=== PATIENT | female | born 2005 | race Caucasian/White ===

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

== ENCOUNTER 2025-09-12 17:47 | Emergency (ER) | payer OTHER, SELFPAY ==
--- OUTSIDE RECORDS SUMMARY | 2025-09-12 17:50 | XMS_ITS | Clinical Summary ---
Author Organization [facility] Address [address] [place] [address] Care Team Providers Care Plate Slitter And Inspector Name Role Phone Scout Bentley MD Primary [...] XR (GLUCOPHAGE XR) 500 mg 24 hr tabletIndicatio ns:PCOS (polycystic ovarian syndrome) Take 1 tablet (500 mg total) by mouth daily with breakfast 90 tablet 3 5 Active spironolactone (ALDACTONE) 100 mg tabletIndicatio ns:PCOS (polycystic ovarian syndrome) Take 1 tablet (100 mg total) by mouth daily 90 tablet 3 5 Active Active Problems Problem Noted Date Diagnosed Date Morbid obesity with BMI of 40.0-44.9, adult 01/08 Insulin resistance 02/11/2024 Assessment & Plan (02/11/2024 [...] Tobacco: Never Tobacco Cessation:Counseling Given: Not Answered Comments Unknown Sex and Gender Information Value Date Recorded Sex Assigned at Not on file 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 Gender Identity Not on file Sexual Orientation Not on file Last Filed Vital Signs Vital Sign Reading Time Taken Comments Blood Pressure 110/72 01/30/2025 9:49 AM CDT Pulse 88 01/30/2025 9:49 AM CDT Temperature - - Respiratory Rate 14 02/11/2024 12:5 0 PM CDT Oxygen Saturation - - Inhaled Oxygen Concentration - - Weight 113.9 kg (251 lb 3.2 oz) 01/30/2025 9:49 AM CDT Height 167.6 cm (5' 6) 01/30/2025 9:49 AM CDT Body Mass Index 40.54 01/30/2025 9:49 AM CDT Plan of Treatment Health Maintenance Due Date Last Done Comments Depression Screening 2005 Hepatitis C Screening 2005 Varicella Vaccines (1 of 2 - 13+ 2-dose series) 2018 Hepatitis B Screening 2023 Regular Well Visit/Exam 18-64 2023 Meningococcal B Vaccine (2 of 2 - Bexsero SCDM 2-dose series) 12/27/2023 06/26/2023 Covid-19 Vaccine ( - season) 2025 11/07/2021, 08/26/2021, 04/13/2021, Additional history exists Influenza Vaccine (#1) 2025 , 09/09/2019, 09/03/2018, Additional history exists DTaP/Tdap/Td Vaccine (2 - Td or Tdap) 07/31/2026 07/31/2016 HPV Vaccines Completed 02/05/2017, 09/10, 07/31/2016 Meningococcal Vaccine Completed 06/26/2023, 016 Pneumococcal vaccine <65 Aged Out No longer eligible based on patient's age to complete this topic Additional Health Concerns Infection Onset Date Last Indicated MDR gram neg/ESBL 10/08/2021 10/08/2021 [place] [address] [facility] [place] [address] Care Teams Plate Slitter And Inspector Relationship Specialty Start Date End Date Scout Bentley MD [address] [place], [place] [address] PCP - General Pediatrics 06/07/19
--- OUTSIDE RECORDS SUMMARY | 2025-09-12 17:50 | XMS_ITS | Clinical Summary ---
Author Organization [facility] Address [address] [place] [id number] Care Team Providers Care Sole Leveler Name Role Phone Unavailable Primary Care Provider [...] 2 - Standard) 2021 Hepatitis C 2023 DTaP, Tdap and Td Vaccines ( 1 - Tdap) 2024 Hepatitis B Vaccines (1 of 3 - 19+ 3-dose series) 2024 COVID-19 Vaccine (1 - 2024-2 6 season) 2025 Influenza Adult (#1) 2025 Hepatitis A Vaccines Aged Out No long er eligible based on patient's age to complete this topic Meningococcal Vaccine Aged Out No heriberto katja eligible based on patient's age to complete this topic Pneumococcal Vaccine: Pediat rics (0 to 5 Years) and At-Risk Patients (6 to 49 Years) Aged Out No longer eligible b ased on patient's age to complete this topic RSV Immunizations Under 20 Months Aged Out No longer eligible based on patient's age to complete this topic
--- OUTSIDE RECORDS SUMMARY | 2025-09-12 17:50 | XMS_ITS | Clinical Summary ---
Author Organization [facility] Address [address] [place] [address] Care Team Providers Care Manager Games Name Role Phone Scout Bentley MD Primary Care Provider [phone] Source Comments [facility],non-owned Affiliates and Associated Physician Practices is amultiple site organization consisting of ambulatory clinics and hospital sitesin [place], [place], [place] and [place]. This disclosure is being madepursuant to the Care Everywhere program and may not contain all information available regarding this patient. Last updated 18.[facility] Allergies No known active allergies Medications * Be aware that medications may not be up to date on this document. Alwaysverify current medications with the patient. 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 Gender Identity Not on file Sexual Orientation Not on file Last Filed Vital Signs Vital Sign Reading Time Taken Comments Blood Pressure - - Pulse - - Temperature - - Respiratory Rate - - Oxygen Saturation - - Inhaled Oxygen Concentration - - Weight 90.2 kg (198 lb 13.7 oz) 09/04/2022 4:00 PM CDT Height 168.3 cm (5' 6.25) 09/04/2022 4:00 PM CD T Body Mass Index 31.85 09/04/2022 4:00 PM CDT Plan of Treatment Health Maintenance Due Date Last Done Comments HIV SCREENING 2020 HPV VACCINE (1 - 3-dose series) 2020 CHLAMYDIA/GONORRHEA SCREENING 2021 MENINGOCOCCAL (Group B) VACC INE SHARED DECISION-MAKING (1 of 2 - Standard) 2021 HEPATITIS C SCREENING 07/24/2023 DTAP/TDAP/TD VACCINES (1 - Tdap) 2024 HEPATITIS B VACCINE (1 of 3 - 19+ 3-dose series) 2024 DEPRESSION SCREENING 11/09/2024 COVID-19 VACCINE (1 - 2023-2 5 season) 2025 INFLUENZA VACCINE (#1) 2025 09/03/2018 ZOSTER VACCINE (1 of 2) 2055 HIB VACCINE Aged Out No longer eligi ble based on patient's age to complete this topic MENINGOCOCCAL GROUPS A/C/Y/W VACCINE Aged Out No longer eligible b ased on patient's age to complete this topic PNEUMOCOCCAL VACCINE Aged Out No long er eligible based on patient's age to complete this topic Insurance [employer] Care Teams Manager Games Relationship Specialty Start Date End Date Scout Bentley MD [address] [place] [address] PCP - General Pediatrics 10/08/15
--- OUTSIDE RECORDS SUMMARY | 2025-09-12 17:50 | XMS_ITS | Patient Health Record ---
Author Organization [facility] Address [address] [place] [address] Care Team Providers Care Splicing Machine Operator Name Role Phone Marixa Chung Primary Care Provider Allergies No Known Allergies Reason For Referral No Information Medications Medication SIG (Take, Route, Frequency, Duration) Notes Start Date End Date Status Omeprazole 20 MG TAKE 1 CAPSULE BY MO UTH TWICE DAILY Oral; Duration: 90 Days Active guanFACINE HCl ER 2 MG [address] Orally once a day; Duration: 30 days 01/21/2024 Active Spironolactone 100 MG TAKE 1 TABLET BY M OUTH ONCE DAILY IN THE MORNING Oral; Duration: 7 Days Active hydrOXYzine HCl 25 MG 1 tablet as needed Oral Once a day Active fluvoxaMINE Maleate 50 MG 1 tablet at be dtime Orally Once a day; Duration: 30 days Active metFORMIN HCl ER 500 MG TAKE 1 TABLET BY MOUTH ONCE DAILY WITH SUPPER Oral; Duration: 90 Days Active Drospirenone-Ethinyl Estradiol 3-0.03 MG TAKE 1 TABLET BY MOUTH ONCE DAILY Oral; Duration: 84 Days Active Social History Tobacco Use: Social History Observation Description Date Details (start date - stop date) Never Smoker NA - NA Sex Assigned At : Social History Observation Description Sex Assigned At Female Dont use, Tobacco Use/Smoking Question Answer Notes Are you a nonsmoker Tobacco Control (Standard) Question Answer Notes Additional Findings: Tobacco non-user Cu rrent nonsmoker,Nonsmoker for personal reasons Tobacco use: Nonsmoker Problems Problem Type SNOMED Code ICD Code Onset Dates Problem Status W/U Status Risk Notes Problem Generalized anxiety disorder (97039086) GUY (generalized anxiety disorder) (F41.1) Active confirmed Problem Major depressive disorder (568982561) MDD (major depressive disorder) (F32.9) Active confirmed Encounters Encounter Location Date Provider Diagnosis [facility] [address] [place] [address] 09/27/2024 Marixa Chung GUY (generalized anxiety disorder) F41.1 and MDD (major depressive disorder) F32.9 [facility] [place] [address] 12/20/2024 Marixa Chung GUY (generalized anxiety disorder) F41.1 and MDD (major depressive disorder) F32.9 [place] [address] [place] [address] 04/05/2025 Marixa Chung GUY (generalized anxiety disorder) F41.1 and MDD (major depressive disorder) F32.9 [place] [address] [place] [address] 08/01/2025 Marixa Chung GUY (generalized anxiety disorder) F41.1 and MDD (major depressive disorder) F32.[address] [place] [place] [address] 07/07/2025 Marixa Chung GUY (generalized anxiety disorder) F41.1 Assessments Encounter Date Diagnosis (ICD Code) Assessment Notes Treatment Notes Treatment Clinical Notes Section Notes 09/27/2024 GUY (generalized anxiety disorder) (ICD-10 - F41.1) Continue current medications. Continue services as scheduled. Labs completed recently. May self-administer medications or be administered own oral medications per [employer] protocols. Provided informed consent with understanding of side effects, adverse effects, risks and benefits as well as alternative treatments as previously discussed and with the above recommended medications & other aspects of the treatment program. Agrees to return sooner if symptoms worsen or suicidal or homicidal ideations occur. 12/20/2024 GUY (generalized anxiety disorder) (ICD-10 - F41.1) Continue current medications. Continue services as scheduled. Labs completed recently. May self-administer medications or be administered own oral medications per [employer] protocols. Provided informed consent with understanding of side effects, adverse effects, risks and benefits as well as alternative treatments as previously discussed and with the above recommended medications & other aspects of the treatment program. Agrees to return sooner if symptoms worsen or suicidal or homicidal ideations occur. 04/05/2025 GUY (generalized anxiety disorder) (ICD-10 - F41.1) Continue current medications. Continue services as scheduled. Labs completed recently. May self-administer medications or be administered own oral medications per [facility] protocols. Provided informed consent with understanding of side effects, adverse effects, risks and benefits as well as alternative treatments as previously discussed and with the above recommended medications & other aspects of the treatment program. Agrees to return sooner if symptoms worsen or suicidal or homicidal ideations occur. 07/07/2025 GUY (generalized anxiety disorder) (ICD-10 - F41.1) 08/01/2025 GYU (generalized anxiety disorder) (ICD-10 - F41.1) Continue current medications. Labs done recently. Continue services as scheduled. May self-administer medications or be administered own oral medications per [facility] protocols. Provided informed consent with understanding of side effects, adverse effects, risks and benefits as well as alternative treatments as previously discussed and with the above recommended medications & other aspects of the treatment program. Agrees to return sooner if symptoms worsen or suicidal or homicidal ideations occur. 08/01/2025 MDD (major depressive disorder) (ICD-10 - F32.9) 04/05/2025 MDD (major depressive disorder) (ICD-10 - F32.9) 12/20/2024 MDD (major depressive disorder) (ICD-10 - F32.9) 09/27/2024 MDD (major depressive disorder) (ICD-10 - F32.9) Plan Of Treatment No Information Medical (General) History Medical History History ICD Code PCOS GERD Surgical History Surgery Date(Month/Year) Hospitalization History Reason Date(Month/Year)
[2025-09-12 17:54] VITALS: BP 121/75; PULSE 93; RESP 18; TEMP 37.4; O2SAT 99
--- NOTE | 2025-09-12 18:33 | ED.GENADULT ---
HPI - General Adult General Chief complaint: Upper Respiratory Infection Stated complaint: Cough Source: patient Mode of arrival: ambulatory Limitations: no limitations History of Present Illness HPI narrative: Patient presents for evaluation of a cough for the last 4-5 days. She states cough is productive of white sputum. She denies any shortness of breath. No fever, chills, nausea, vomiting, sore throat, otalgia. No recent sick contacts to her knowledge. She does not smoke. She is not taking any medication to assist with her symptoms. Related Data Home Medications ?Medication ?Instructions ?Recorded ?Confirmed ?Last Taken ?Type metformin 500 mg tablet 500 mg PO DAILY 07/23/22 07/11/25 Unknown History spironolactone 100 mg tablet 100 mg PO DAILY 01/03/23 07/11/25 Unknown History fluvoxamine 50 mg tablet mg PO 07/10/23 07/11/25 Unknown History omeprazole 20 mg capsule,delayed mg PO 07/10/23 07/11/25 Unknown History release guanfacine 2 mg tablet,extended mg PO 06/24/24 07/11/25 Unknown History release 24 hr zinc glycinate 20 mg capsule 20 mg PO DAILY 07/11/25 07/11/25 Unknown History Allergies Allergy/AdvReac Type Severity Reaction Status Date / Time No Known Allergies Allergy Verified 09/12/25 17:52 Review of Systems Review of Systems: CONSTITUTIONAL: Denies fever, chills, or sweats. EYES: Denies visual changes, redness, or discharge. ENT: Denies rhinorrhea, congestion, sore throat, or otalgia. CARDIOVASCULAR: Denies chest pain, palpitations, or edema. RESPIRATORY: Reports cough. Denies SOB GASTROINTESTINAL: Denies abdominal pain, nausea, vomiting, or diarrhea. GENITOURINARY: Denies dysuria or hematuria. SKIN: Denies rash or itching. MUSCULOSKELETAL: Denies back pain, joint pain, or myalgia. NEUROLOGIC: Denies headache, numbness, dizziness, or weakness. PSYCHIATRIC: Denies anxiety or depression. [facility] Past Medical History Medical History Iron deficiency PCOS (polycystic ovarian syndrome) Acne agminata Surgical History Surgical History No pertinent past surgical history Family History Family History Mother Family history non-contributory Social History Social History Alcohol intake: never Substance use: never Substance use type: does not use Do You Feel Safe in your Home?: Yes Lack of Transportation: No Lack of Food: Never True Current Housing: I Have Housing Concerned About Future Housing: No Difficulty Paying Gas/Electric Bills: No Difficulty Paying for Meds: No Currently Unemployed: No Education: Associate Degree Difficulty w/ Childcare or Family Care: No Living arrangements: with family Occupation/Education: student Additional occupation/education comments: also working Gender identity (if verbalized by the patient): Female Sexual Orientation (if Verbalized by the Patient): Straight or Heterosexual Exam Narrative: GENERAL: Well-appearing, well-nourished, and in no acute distress. HEAD: Normocephalic, atraumatic. EYES: PERRLA and EOMI. ENT: Nares clear, no rhinorrhea or epistaxis. Mucous membranes moist. Oropharynx without tonsillar hypertrophy exudate or other lesions. Bilateral TMs pearly hoffman nonbulging NECK: Supple. No adenopathy or masses. No carotid bruits or JVD CHEST: Clear to auscultation. No respiratory distress. No wheezes rales or rhonchi HEART: Regular rate and rhythm. No murmur heard. Normal peripheral pulses. ABDOMEN: Soft, nontender, nondistended, normal active bowel sounds. EXTREMITIES: Normal range of motion. No edema. SKIN: Warm, dry, no rash. NEURO: No focal deficits. Alert and oriented x3. PSYCH: Normal mood and affect. Course Course Emergency Course: This is a 20-year-old female who presented for evaluation of a cough. Her lungs are completely clear with no adventitious sounds present. I did offer to check a COVID and flu test. I also offered chest x-ray. She declined. Think this is reasonable. She appears well clinically. Will discharge with Tessalon. Follow up with primary provider. Go to the ER for worsening symptoms. Patient in agreement with plan of care. Level of Care: Express Care Visit Vital Signs Vital signs: Vital Signs Temperature 37.4 C 09/12/25 17:54 Pulse Rate 93 09/12/25 17:54 Respiratory Rate 18 09/12/25 17:54 Blood Pressure 121/75 09/12/25 17:54 Pulse Oximetry 99 09/12/25 17:54 Oxygen Delivery Room Air 09/12/25 17:54 Temperature 37.4 C 09/12/25 17:54 Pulse Rate 93 09/12/25 17:54 Respiratory Rate 18 09/12/25 17:54 Blood Pressure 121/75 09/12/25 17:54 Pulse Oximetry 99 09/12/25 17:54 Oxygen Delivery Room Air 09/12/25 17:54 Medical Decision Making Vital Signs Vital Signs: Vital Signs Temperature 37.4 C 09/12/25 17:54 Pulse Rate 93 09/12/25 17:54 Respiratory Rate 18 09/12/25 17:54 Blood Pressure 121/75 09/12/25 17:54 Pulse Oximetry 99 09/12/25 17:54 Oxygen Delivery Room Air 09/12/25 17:54 Temperature 37.4 C 09/12/25 17:54 Pulse Rate 93 09/12/25 17:54 Respiratory Rate 18 09/12/25 17:54 Blood Pressure 121/75 09/12/25 17:54 Pulse Oximetry 99 09/12/25 17:54 Oxygen Delivery Room Air 09/12/25 17:54 Discharge Plan Discharge Clinical Impression: URI (upper respiratory infection) Patient Disposition: Home Condition: Stable Instructions: Antibiotic Form, Upper Respiratory Infection (ED) Patient Language: Citizen Of [place] Prescriptions: New benzonatate 200 mg capsule 200 mg PO TID PRN (Reason: cough) Qty: 30 0RF No Action guanfacine 2 mg tablet extended release 24 hr PO spironolactone 100 mg Tablet 100 mg PO DAILY metformin 500 mg tablet 500 mg PO DAILY fluvoxamine 50 mg tablet PO omeprazole 20 mg capsule,delayed release(DR/EC) PO zinc glycinate 20 mg capsule 20 mg PO DAILY drospirenone-ethinyl estradiol 3-0.03 mg tablet 1 tablet PO DAILY Qty: 84 4RF Follow-up/Referrals: Scout Paul MD [Primary Care Provider, Pediatrics] Time of Disposition: 18:04
== END 2025-09-12 18:05 | disposition home or self-care (01) ==
PROVIDERS: Emergency Provider Nurse Practitioner; PCP Pediatrics
DX: J06.9 Acute upper respiratory infection, unspecified (principal)
CPT/HCPCS: 99213; G0463